=== PATIENT | male | born 1990 | race Caucasian/White ===

== ENCOUNTER 2021-07-08 09:19 | Outpatient (CLI) | payer BC, SELFPAY ==
--- NOTE | ~2021-07-08 | CT_ITS ---
EXAMINATION: CT abdomen pelvis w con INDICATION: Intra-abdominal and pelvic swelling, abdominal wall mass TECHNIQUE: Computed tomographic images of the abdomen and pelvis were obtained after the administrati on of 100 cc of Omnipaque 350 intravenous contrast. The dose-length product (DLP) was 507.99 mGy-cm. Automated exposure control and iterative reconstruction technique were employed. COMPARISON: None available FINDINGS: Minimal dependent atelectasis is present in the lung bases. The heart size is normal. The l iver, spleen, pancreas, gallbladder, and adrenal glands are normal. The kidneys are unremarkable. The re is an approximately 6.9 x 3.5 x 9.9 cm expansile, heterogeneous, intramuscular mass in the abdomin al wall to the right of midline near the umbilicus. No pathologically enlarged abdominal or pelvic ly mph nodes are identified. There is no free intraperitoneal gas or evidence of bowel obstruction. IMPRESSION: 1. Heterogeneous expansile mass of the right anterior abdominal wall. Given the absence of recent tra bree, neoplasm is a consideration. Further evaluation with ultrasound-guided biopsy is recommended. Reviewed, dictated and finalized at location B. IMPRESSION: 1. Heterogeneous expansile mass of the right anterior abdominal wall. Given the absence of recent trauma, neoplasm is a consideration. Further evaluation with ultrasound-guided biopsy is recommended.
== END 2021-07-08 09:20 | disposition home or self-care (01) ==
PROVIDERS: PCP Internal Medicine; Visit Provider Internal Medicine
DX: R19.00 Intra-abdominal and pelvic swelling, mass and lump, unspecified site (principal)
CPT/HCPCS: 74177; Q9967

== ENCOUNTER 2021-07-18 09:15 | Outpatient (CLI) | payer BC, SELFPAY ==
--- NOTE | ~2021-07-18 | US_ITS ---
EXAMINATION: US biopsy abd retroperitoneal DATE: 07/18/2021 10:07 INDICATION: Right paraumbilical mass TECHNIQUE: The procedure including the risks and benefits was discussed with the patient. Risks discu ssed included bleeding and infection. The patient understood the risks and agreed to proceed. The sk in along the right side of the umbilicus was prepped and draped in usual sterile fashion. Anesthetic was administered with 1% lidocaine subcutaneously. An 18 gauge core biopsy needle was advanced unde r continuous ultrasound observation to the lesion of interest. 3 core biopsy specimens were obtained . The needle was removed and the entry site was cleaned and dressed. The skin entry site was located over the central aspect of the mass, 1 cm from the margin of the umbilicus at the 10:30 position. Pos t procedure ultrasound demonstrated no hemorrhage. FINDINGS: Ultrasound images demonstrate a 6.9 x 5.8 x 3.3 cm lobular hypoechoic mass in the right par aumbilical anterior abdominal wall. Biopsy needle seen is advanced into the mass on real-time imaging . IMPRESSION: 1. Successful Ultrasound-guided biopsy of a 6.9 x 5.8 x 3.3 cm right periumbilical abdominal wall mas s. Reviewed, dictated and finalized at location A. IMPRESSION: 1. Successful Ultrasound-guided biopsy of a 6.9 x 5.8 x 3[address] abdominal wall mass.
== END 2021-07-18 09:16 | disposition home or self-care (01) ==
LOC: ANHIMG 09:20
PROVIDERS: PCP Internal Medicine; Visit Provider Internal Medicine
DX: C49.9 Malignant neoplasm of connective and soft tissue, unspecified (principal); R19.05 Periumbilic swelling, mass or lump
CPT/HCPCS: 49180; 76942; 88305; 88342

== ENCOUNTER 2022-03-04 09:33 | Observation (INO) | payer BC, SELFPAY ==
[2022-03-04] VITALS (10 sets, daily range): BP systolic 102–132; BP diastolic 63–91; PULSE 73–106; RESP 16–18; TEMP 36.3–37.1; O2SAT 98–100; BMI 27.4
--- NOTE | ~2022-03-04 | CT_ITS ---
EXAMINATION: CT abdomen pelvis w con DATE: 03/04/2022 10:50 INDICATION: Abdominal pain at surgical site. Sarcoma. TECHNIQUE: Computed tomography (CT) of the abdomen and pelvis was performed with 100 mL Omnipaque 350 intravenous contrast. Automated exposure control and iterative reconstruction technique were employe d. The dose-length product was 711.73 mGy-cm. COMPARISON: CT abdomen and pelvis 07/08/2021 FINDINGS: The visualized portions of the lung bases demonstrate mild atelectasis. No pleural effusion . The heart size is normal. No pericardial effusion. The liver, gallbladder, spleen, pancreas, adrena l glands, and left kidney are normal. There is a 5 mm cyst in right kidney. There are no dilated loop s of bowel. The appendix is normal. There are no pathologically enlarged lymph nodes. There is a smal l volume of pelvic ascites. There are surgical changes of right anterior abdominal wall. There are fl uid collections deep and superficial to the abdominal wall musculature that likely communicate with e ach other. The largest fluid pocket measures 12.5 x 2.7 x 1.4 cm. There is thickening of the involved musculature. 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 IMPRESSION: 1. Surgical changes of right anterior abdominal wall with system of communicating fluid collections d eep and superficial to the abdominal wall musculature, consistent with abscesses. Reviewed, dictated and finalized at location A. IMPRESSION: 1. Surgical changes of right anterior abdominal wall with system of communicati ng fluid collections deep and superficial to the abdominal wall musculature, co nsistent with abscesses.
--- NOTE | ~2022-03-04 | US_ITS ---
. EXAMINATION: US percutaneous drain w cath DATE: 03/05/2022 12:21 INDICATION: Right abdominal wall abscess. TECHNIQUE: The procedure including the risks, benefits, and alternatives was discussed with the patie nt. Risks discussed included bleeding and infection. Oral and written consent were obtained. A time out was performed to verify the patient's name, date of , and procedure to be performed. The sk in overlying the abdomen was prepped and draped in usual sterile fashion. Anesthetic was administere d with 1% lidocaine subcutaneously. Needle probing did not yield drainable fluid. An 8.5 Fr catheter was inserted into the abscess by trocar technique. The metal stiffener and trocar needle were remove d, and the pigtail tip was locked. No fluid could be aspirated. The catheter was stitched to the skin with suture. There were no immediate complications. FINDINGS: Ultrasound images demonstrate the catheter within the abscess. IMPRESSION: 1. Ultrasound-guided abdominal wall abscess drainage. The abscess is a web-like distribution of chann els superficial and deep to the abdominal wall musculature. The drain was placed through the superfic ial component and a transmuscular channel into the deep component. The drain is lateral and inferior to the most recent skin drainage site. Reviewed, dictated and finalized at location A. IMPRESSION: 1. Ultrasound-guided abdominal wall abscess drainage. The abscess is a web-like distribution of channels superficial and deep to the abdominal wall musculatur e. The drain was placed through the superficial component and a transmuscular c hannel into the deep component. The drain is lateral and inferior to the most r ecent skin drainage site.
[2022-03-04 10:20] LABS: Basophils Percent Auto 0.3 % (0.2-1.2); Eosinophils Absolute Auto 0.1 K/mm3 (0-0.3); Eosinophils Percent Auto 0.6 % (0-4.4); Hematocrit 43.6 % (42.0-52.0); Hemoglobin 14.7 g/dL (14.0-18.0); Immature Granulocyte Absolute 0.03 K/mm3 (0.00-0.031); Immature Granulocyte Percent A 0.3 % (0-0.5); Lymphocytes Absolute Auto 1.23 K/mm3 (0.9-3.2); Lymphocytes Percent Auto 11.4 % (18.3-44.2); Mean Corpuscular HGB Conc 33.7 g/dl (32-36); Mean Corpuscular Hemoglobin 31.7 pg (26-34); Mean Platelet Volume 10.2 fl (7.4-10.4); Monocytes Absolute Auto 0.8 K/mm3 (0.1-0.6); Neutrophils Absolute Auto 8.7 K/mm3 (1.3-6.7); Neutrophils Percent Auto 80.4 % (45.5-73.1); Platelet Count Result 222 k/mm3 (150-375); Red Blood Count 4.64 M/mm3 (4.6-6.20); Red Cell Distribution Width 11.8 % (11.5-14.5); White Blood Count 10.8 K/mm3 (4.5-10.0)
[2022-03-04 10:31] LABS: Alanine Aminotransferase 28 U/L (4-50); Albumin Level 4.3 g/dL (3.5-5.1); Alkaline Phosphatase 116 U/L (38-126); Anion Gap 5 mmol/L (8-16); Aspartate Amino Transferase 25 U/L (17-59); Bilirubin,Total 0.9 mg/dL (0.2-1.3); Blood Urea Nitrogen 12 mg/dL (9-20); Calcium 8.9 mg/dL (8.4-10.2); Carbon Dioxide 31 mmol/L (22-30); Chloride 100 mmol/L (98-107); Estimated CRCL calculation 105 ml/min; Estimated Glomerular Filt Rate > 60; Glucose 103 mg/dL (65-110); Lipase 60 U/L (23-300); Potassium 4.3 mmol/L (3.4-5.0); Sodium 136 mmol/L (137-145)
--- NOTE | 2022-03-04 10:35 | ED.ABDPAIN ---
HPI - Abdominal Pain General Chief Complaint: Abdominal Pain Stated Complaint: abd pain Time Seen by Provider: 03/04/22 10:09 Source: patient Mode of arrival: ambulatory Limitations: no limitations History of Present Illness HPI narrative: 31-year-old male presents emergency room concerned he may have an infection to his abdominal wall. 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 He states he has had some mild pain to it but now over the last 24 to 36 hours has gotten much more painful and began having some drainage from the incision site. Denies any chills but felt like he may have had a low-grade fever. He is currently still under treatment for this. He contacted his surgeon who told him to come to the emergency department to be evaluated. Patient is HIV positive but his viral load is nondetectable. Is been compliant with his medications. He has been taking tramadol to assist with the pain but he states the pain is intensified at this point. Related Data Home Medications Medication Instructions Recorded Confirmed bictegravir 50 mg-emtricitabine 1 tablet PO DAILY 07/08/21 07/08/21 200 mg-tenofovir alafenam 25 mg tablet pantoprazole 20 mg tablet,delayed 20 mg PO QAM 07/08/21 07/08/21 release Allergies Allergy/AdvReac Type Severity Reaction Status Date / Time No Known Allergies Allergy Verified 03/04/22 09:52 Review of Systems Review of Systems: CONSTITUTIONAL: Denies fever, chills, or sweats. EYES: Denies visual changes, redness, or discharge. ENT: Denies rhinorrhea, congestion, sore throat, or otalgia. CARDIOVASCULAR: Denies chest pain, palpitations, or edema. RESPIRATORY: Denies cough or dyspnea. GASTROINTESTINAL: Denies nausea, vomiting, or diarrhea. Having abdominal wall pain at the site of his prior surgery. GENITOURINARY: Denies dysuria or hematuria. SKIN: Denies rash or itching. MUSCULOSKELETAL: Denies back pain, joint pain, or myalgia. NEUROLOGIC: Denies headache, numbness, or weakness. PSYCHIATRIC: Denies anxiety or depression. [facility] Past Medical History Medical History GERD (gastroesophageal reflux disease) HIV (human immunodeficiency virus infection) Normal colonoscopy SCC (squamous cell carcinoma) Umbilical hernia Family History Family History Father Hypertension Carcinoma of colon Patient's father is , Onset Age: 45 Mother Hypertension Carcinoma of colon Family history of hypothyroidism Thyroid disorder Grandparent Carcinoma of colon Heart disease Social History Social History Smoking status: Former smoker Tobacco type: cigarettes Alcohol intake: current Alcohol use details: 1-2 drinks per week Exam Narrative: APPEARANCE: Well appearing, no pain or distress, well-nourished. Head normocephalic and atraumatic. EYES: PERRLA/EOMI, conjunctivae very clear. NOSE: Normal with no drainage EARS:TMS clear Princess Dickerson, with good light reflex. THROAT: Pharynx clear, no exudate. NECK: Supple. No adenopathy, no masses. RESPIRATORY: Airway patent, respirations nonlabored. Clear to auscultation bilaterally, no rales, rhonchi, wheezing. CARDIOVASCULAR: Regular rate and rhythm without murmurs, rubs, or gallops. ABDOMINAL: From the midportion of his abdomen standing to the right lateral aspect of his abdomen the entire area is very erythematous and firm. It is tender to palpation. There would have some mild purulent drainage coming out from the prior surgical site. Musculoskeletal: Moves all extremities. Strength/ROM intact, No edema, No calf tenderness. NEURO: Alert. Cranial nerves II through XII intact. Normal gait. Good coordination. Nonfocal examination. SKIN:: Warm, dry. Normal Color PSYCHIATRIC: Normal affect/mood, normal interaction Course Consultations Consultatio
[2022-03-04 11:00] LABS: Add Urine Microscopic? NO; Appearance Urine Clear (Clear); Bilirubin Urine Negative (Negative); Blood Urine Negative (Negative); Color Urine Yellow (Yellow); Glucose Urine UA Negative (Negative); Ketones Urine Negative (Negative); Leukocyte Esterase Ur Negative LEU/UL (Negative); Nitrate Urine Negative (Negative); Protein Urine Negative (Negative); Specific Grav Ur 1.013 (1.001-1.035); Urobilinogen Urine Negative mg/dL (<2.0)
[2022-03-04] MEDS: MORPHINE SULFATE (*CRX) 4 MG/ML INJ IV PUSH ×2 (11:27→14:58)
[2022-03-04 15:13] LABS: EDCOVIDSCREEN Negative (Negative)
--- NOTE | 2022-03-04 16:30 | PM.IMHP ---
H&P: HPI History of Present Illness Date/Time: 03/04/22 17:28 This patient is a 31-year-old white male who presented to the emergency room today (03/04) concerned he may have an infection to his abdominal wall. 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 He states he has had some mild pain to it but now over the last 24 to 36 hours has gotten much more painful and began having some drainage from the incision site. Denies any chills but felt like he may have had a low-grade fever. He is currently still under treatment for this. He contacted his surgeon who told him to come to the emergency department to be evaluated. Patient is HIV positive but his viral load is nondetectable. Is been compliant with his medications. He has been taking tramadol to assist with the pain but he states the pain is intensified at this point. Related Data Chief Complaint: Abdominal wall pain on the Right Review of Systems Review of Systems: CONSTITUTIONAL: Denies fever, chills, or sweats. EYES: Denies visual changes, redness, or discharge. ENT: Denies rhinorrhea, congestion, sore throat, or otalgia. CARDIOVASCULAR: Denies chest pain, palpitations, or edema. RESPIRATORY: Denies cough or dyspnea. GASTROINTESTINAL: Denies nausea, vomiting, or diarrhea. Having abdominal wall pain at the site of his prior surgery. GENITOURINARY: Denies dysuria or hematuria. Know Hx and AIDS taking antiviral Rx. SKIN: Denies rash or itching. MUSCULOSKELETAL: Denies back pain, joint pain, or myalgia. NEUROLOGIC: Denies headache, numbness, or weakness. PSYCHIATRIC: Denies anxiety or depression. [facility] Past Medical History Medical History (Updated 03/04/22 @ 17:37 by Mario Dominguez MD) AIDS (acquired immunodeficiency syndrome), CD4 <=200 GERD (gastroesophageal reflux disease) HIV (human immunodeficiency virus infection) Normal colonoscopy SCC (squamous cell carcinoma) Soft tissue sarcoma of abdominal wall Umbilical hernia Family History Family History Father Hypertension Carcinoma of colon Patient's father is , Onset Age: 45 Mother Hypertension Carcinoma of colon Family history of hypothyroidism Thyroid disorder Grandparent Carcinoma of colon Heart disease Social History Social History Smoking status: Never smoker Tobacco type: cigarettes Alcohol intake: current Alcohol use details: 1-2 drinks per week Substance use: never Spiritual care concerns: No Meds Home Medications and Allergies Home Medications Medication Instructions Recorded Confirmed Type bictegravir 50 mg-emtricitabine 1 tablet PO DAILY 07/08/21 03/04/22 History 200 mg-tenofovir alafenam 25 mg tablet pantoprazole 20 mg tablet,delayed 20 mg PO QAM 07/08/21 03/04/22 History release Lactobacillus acidophilus 100 mg PO DAILY 03/04/22 03/04/22 History aspirin [Adult Low Dose Aspirin] 81 mg PO DAILY 03/04/22 03/04/22 History cholecalciferol (vitamin D3) 50 mcg PO DAILY 03/04/22 03/04/22 History [Vitamin D3] omega-3 fatty acids [Fish Oil] 1,000 mg PO DAILY 03/04/22 03/04/22 History tramadol 50 mg PO Q6H PRN 03/04/22 03/04/22 History vitamin B complex [B 1 tablet PO DAILY 03/04/22 03/04/22 History Complex-Vitamin B12] Allergies Allergy/AdvReac Type Severity Reaction Status Date / Time No Known Allergies Allergy Verified 03/04/22 09:52 Vital Signs Vital Signs - 24 hr 03/04/22 09:47 03/04/22 11:31 03/04/22 12:35 Temperature 37.1 C 36.3 C L 36.4 C Pulse Rate 106 H 75 91 Respiratory Rate 18 16 16 Blood Pressure 132/83 128/80 102/91 H Pulse Oximetry 100 98 100 03/04/22 13:30 03/04/22 14:35 03/04/22 15:30 Temperature 36.7 C 36.3 C L 36.3 C L Pulse Rate 91 73 80 Respiratory Rate 16 16 16 Blood Pressure 110/70 108/72 104/63 Pulse Oximetry 100 98 98 03/04/22 16:26 03/04/22
[2022-03-04] MEDS: SODIUM CHLORIDE 0.9% IV 1,000 ML 100 ML IV CONT (18:08)
[2022-03-04] MEDS: MORPHINE SULFATE (*CRX) 2 MG/ML INJ IV PUSH (19:43)
[2022-03-04 21:01] LABS: Lactic Acid Reflex 1.3 mmol/L (0.7-2.1)
[2022-03-04] MEDS: HYDROcodone/acetaminophen (*CRX) 5-325 MG TABLET 1 TAB PO (21:11)
[2022-03-05 05:32] VITALS: BP 111/60; PULSE 86; RESP 16; TEMP 37.6; O2SAT 98
[2022-03-05 06:22] LABS: Basophils Percent Auto 0.4 % (0.2-1.2); Eosinophils Absolute Auto 0.2 K/mm3 (0-0.3); Eosinophils Percent Auto 1.4 % (0-4.4); Hemoglobin 13.9 g/dL (14.0-18.0); Immature Granulocyte Absolute 0.02 K/mm3 (0.00-0.031); Immature Granulocyte Percent A 0.2 % (0-0.5); Lymphocytes Percent Auto 12.7 % (18.3-44.2); Mean Corpuscular HGB Conc 34.8 g/dl (32-36); Mean Corpuscular Hemoglobin 31.9 pg (26-34); Mean Corpuscular Volume 91.7 fl (80-100); Mean Platelet Volume 10.3 fl (7.4-10.4); Monocytes Percent Auto 9.3 % (2.6-8.5); Neutrophils Absolute Auto 8.4 K/mm3 (1.3-6.7); Platelet Count Result 207 k/mm3 (150-375); Red Blood Count 4.36 M/mm3 (4.6-6.20); Red Cell Distribution Width 11.5 % (11.5-14.5)
[2022-03-05 06:31] LABS: INR 1.1; Prothrombin Time 13.5 Seconds (11.1-14.7)
[2022-03-05 06:32] LABS: Partial Thromboplastin Time 38.2 SECONDS (22.3-36.8)
[2022-03-05 08:00] VITALS: BP 117/73; PULSE 88; RESP 16; TEMP 36.9; O2SAT 98
[2022-03-05] MEDS: MORPHINE SULFATE (*CRX) 2 MG/ML INJ IV PUSH (08:29)
--- NOTE | 2022-03-05 10:19 | PC.NURSE ---
Pt resting per bed. Alert x4. Dressing changed to abd. Reminded pt to stay NPO. States he has not had any intake since midnight. Verbalized understanding.
--- NOTE | 2022-03-05 11:01 | PC.NURSE ---
Pt to radiology for procedure.
--- NOTE | 2022-03-05 12:18 | PC.NURSE ---
Pt back to floor post procedure. Resting per bed without complaint at present.
[2022-03-05] MEDS: SODIUM CHLORIDE 0.9% IV 1,000 ML 100 ML IV CONT (12:37)
[2022-03-05] MEDS: HYDROcodone/acetaminophen (*CRX) 5-325 MG TABLET 1 TAB PO (13:22)
[2022-03-05 14:34] VITALS: O2SAT 98
[2022-03-05 16:00] VITALS: BP 123/76; PULSE 88; RESP 16; TEMP 37.1; O2SAT 99
--- NOTE | 2022-03-05 16:34 | PM.TDS ---
Transfer Discharge Sum: Prov Provider Date of admission: 03/04/22 17:42 Primary care physician: Irineo Paul DO Admitting clinician: Mario Dominguez MD Attending physician on admission: Mario Dominguez Attending physician on discharge: Mario Dominguez Discharging clinician: Tram Hartmann Anticipated date of transfer: 03/05/22 Receiving physician/facility: [facility] Dr. Zachary Grijalva DS: Admitting Diagnosis Discharge Date Transferred on 03/05/22 to [facility] Admitting Diagnosis Abdominal wall abscess 6 months s/p resection of a sarcoma on the right side of the abdominal wall at [facility] DS: Discharge Diagnosis Discharge Diagnosis (1) Abdominal wall abscess: Onset Date: ~02/2022 Code(s): L02.211 - Cutaneous abscess of abdominal wall Status: Acute (2) AIDS (acquired immunodeficiency syndrome), CD4 <=200: Code(s): B20 - Human immunodeficiency virus [HIV] disease Status: Acute Transfer Discharge Sum: Med Medications Active and Home Medications: Home Medications bictegravir 50 mg-emtricitabine 200 mg-tenofovir alafenam 25 mg tablet 1 tablet PO DAILY 07/08/21 [History Confirmed 03/04/22] pantoprazole 20 mg tablet,delayed release 20 mg PO QAM 07/08/21 [History Confirmed 03/04/22] Lactobacillus acidophilus 100 mg PO DAILY 03/04/22 [History Confirmed 03/04/22] aspirin [Adult Low Dose Aspirin] 81 mg PO DAILY 03/04/22 [History Confirmed 03/04/22] cholecalciferol (vitamin D3) [Vitamin D3] 50 mcg PO DAILY 03/04/22 [History Confirmed 03/04/22] omega-3 fatty acids [Fish Oil] 1,000 mg PO DAILY 03/04/22 [History Confirmed 03/04/22] tramadol 50 mg PO Q6H PRN 03/04/22 [History Confirmed 03/04/22] vitamin B complex [B Complex-Vitamin B12] 1 tablet PO DAILY 03/04/22 [History Confirmed 03/04/22] Active Medications Acetaminophen (Acetaminophen 325 Mg Tablet) 650 mg PO Q4H PRN PRN Reason: Mild Pain (1-3) or Fever Hydrocodone Bitart/Acetaminophen (Hydrocodone/Acetaminophen (*Crx) 5-325 Mg Tablet) 1 tab PO Q6H PRN PRN Reason: Moderate Pain (4-6) Last Admin: 03/05/22 13:22 Dose: 1 tab Documented by: Al Hydrox/Mg Hydrox/Simethicone (Mag Hydrox/Al Hydrox/Simeth 30 Ml Udc) 30 ml PO QID PRN PRN Reason: Dyspepsia Docusate Sodium (Docusate Sodium 100 Mg Capsule) 100 mg PO BID [facility] Last Admin: 03/05/22 08:28 Dose: Not Given Documented by: Sodium Chloride (Normal Saline Iv) 1,000 mls @ 100 mls/hr IV CONT .Q10H [facility] Last Admin: 03/05/22 12:37 Dose: 100 mls/hr Documented by: Vancomycin HCl (Vancomycin 1,500 Mg/D5w 500 Ml) 1,500 mg in 500 mls @ 333.333 mls/hr IVPB Q12H [facility] Last Admin: 03/05/22 12:37 Dose: 333 mls/hr Documented by: Morphine Sulfate (Morphine Sulfate (*Crx) 2 Mg/Ml Inj) 2 mg IV PUSH Q4H PRN PRN Reason: Pain Rated 7-10 Last Admin: 03/05/22 08:29 Dose: 2 mg Documented by: Naloxone HCl (Naloxone Hcl 0.4 Mg/Ml Vial) 0.1 mg IV PUSH Q2M PRN PRN Reason: Opiate Reversal Ondansetron HCl (Ondansetron Inj 4 Mg/2 Ml Vial) 4 mg IV PUSH Q6H PRN PRN Reason: Nausea And Vomiting Transfer Discharge Sum: Hosp Hospital Course Hospital course: Chris Thao is a 31 year old male who presented to the emergency room concerned he may have an infection to his abdominal wall. 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 He states he has had some mild pain to it but this worsened 24 to 36 hours prior to coming into the ER and began having some drainage from the incision site. He is currently still under treatment for this. He contacted his surgeon who told him to come to the emergency department to be evaluated. Patient is HIV positive but his viral load is nondetectable and he has been compliant with his medications. Workup in the ER showed surgical changes of right anterior abdominal wall with system of communicating fluid collections deep and superficial to the abdominal wall musculature, consistent with abscesses, on CT. WBC count 10,800
== END 2022-03-05 19:00 | disposition short-term general hospital (02) ==
LOC: ANHED 14:34 → ANH3MEDSUR 23:06
PROVIDERS: Admitting Provider Surgery; Emergency Provider Emergency Medicine; PCP Internal Medicine; Visit Provider Surgery
DX: L02.211 Cutaneous abscess of abdominal wall (principal); C44.509 Unspecified malignant neoplasm of skin of other part of trunk; Z92.3 Personal history of irradiation; K21.9 Gastro-esophageal reflux disease without esophagitis; Z20.822 Contact with and (suspected) exposure to COVID-19; Z21 Asymptomatic human immunodeficiency virus [HIV] infection status
CPT/HCPCS: 36415; 74177; 75989; 80053; 81003; 83605; 83690; 85025; 85610; 85730; 87040; 87070; 87075; 87147; 87181; 87186; 87205; 87426; 96361; 96365; 96366; 96375; 96376; 99285; A9270; C1729; C9803; G0378; J2270; J3370; J7030; Q9967